=== PATIENT | male | born 1950 | race Caucasian/White ===

== ENCOUNTER 2016-11-03 11:19 | Observation (INO) | payer MEDICARE ==
--- NOTE | ~2016-11-03 | DS ---
PATIENT:HERMELINDA BRIAN :46 MEDICAL RECORD: [id number] DISCHARGE SUMMARY ADMISSION DATE: 11/03/16 DISCHARGE DATE: 11/04/16 PROBLEM LIST: 1. Non-ST elevation myocardial infarction. 2. Hypertension. 3. Hyperlipidemia. BRIEF HISTORY AND HOSPITAL COURSE: A 66-year-old gentleman admitted with a non-ST elevation myocardial infarction. Discussed angiography. Due to time and financial constraints, he was unable to do this at this point in time and perfers to followup at the [place]. He was started on Plavix and nitrates, previously on beta blockade. He was discharged home, pain free after the walking in the halls and eating. He is to return promptly if symptoms recur. Risk, benefit was again explained. TRANSINT:[id number] Voice Confirmation ID: [id number] DOCUMENT ID: [id number] DRAKE TABOR MD CC: [id number] DICTATION DATE: 11/04/16828 HOME THERAPY TEACHER: 11/05/16 0239 DIS IN 11/04/16 [id number] [place] [address]
[2016-11-03 12:10] LABS: BASOPHILS 0.3 % (0-2); EOSINOPHILS 0.7 % (0-7); HEMATOCRIT 37.6 % (42.0-54.0); HEMOGLOBIN 12.5 g/dL (13.5-17.5); IMMATURE GRANULOCYTES 0.2 % (0-5); LYMPHOCYTES 14.4 % (15-50); MCH 33.2 pg (26.0-34.0); MCHC 33.2 g/dL (31.0-37.0); MEAN PLATELET VOLUME 10.7 fL (7.4-10.4); MONOCYTES 10.1 % (2-11); NEUTROPHILS 74.3 % (40-80); PLATELET COUNT 187 10x3/uL (130-400); RBC 3.76 10x6/uL (4.20-6.10)
[2016-11-03 12:21] LABS: APTT 25.8 SECONDS (22.8-39.4); INR 1.09 (0.85-1.17)
[2016-11-03 12:33] LABS: ALBUMIN 3.3 g/dL (3.4-5.0); ALKALINE PHOSPHATASE 48 U/L (46-116); ALT (SGPT) 25 U/L (10-68); BILIRUBIN - TOTAL 0.67 mg/dL (0.2-1.3); CALC OSMOLALITY 271 mosm/kg (275-300); CALCIUM 8.8 mg/dL (8.5-10.1); CARBON DIOXIDE 31.4 mmol/L (21.0-32.0); CHLORIDE - SERUM 100 mmol/L (98-107); CREATININE - SERUM 1.3 mg/dL (0.6-1.3); GLUCOSE 159 mg/dL (74-106); POTASSIUM - SERUM 4.3 mmol/L (3.5-5.1); PROTEIN - SERUM 6.7 g/dL (6.4-8.2); SODIUM 134 mmol/L (136-145); UREA NITROGEN 14 mg/dL (7-18); eGFR NON AFRICAN AMERICAN 58 mL/min (90-120)
[2016-11-03 12:39] LABS: CHOL - HDL RATIO 2.7 ratio (2.3-4.9); CHOLESTEROL, TOTAL 204 mg/dL (0-200); CKMB 1.6 U/L (0.0-3.6); CREATINE KINASE 109 UL (21-232); HDL CHOLESTEROL 75 mg/dL (32-96); LDL CHOLESTEROL 104 mg/dL (0-100); LDL-HDL RATIO 1.4 ratio (1.5-3.5); TRIGLYCERIDE 125 mg/dL (30-200)
[2016-11-03 12:40] LABS: TROPONIN-I < 0.017 ng/mL (0.000-0.060)
[2016-11-03] MEDS ORDERED: ZESTRIL40 MG PO (17:10)
[2016-11-03] MEDS ORDERED: METOPROLOL TART50 MG PO (17:11)
--- NOTE | 2016-11-03 17:59 | NUR ---
PT RECIEVED FROM ER. DENIES ANY DISCOMFORT AT PRESENT TIME. IV TO LEFT AC. TELEMERTY SHOWS SR. V/S STABLE
[2016-11-03 19:19] LABS: CKMB 1.6 U/L (0.0-3.6); CREATINE KINASE 101 UL (21-232)
[2016-11-03 20:50] VITALS: BP 102/67
[2016-11-04 00:37] LABS: CKMB 1.8 U/L (0.0-3.6); CREATINE KINASE 81 UL (21-232)
[2016-11-04 00:40] LABS: TROPONIN-I 0.222 ng/mL (0.000-0.060)
[2016-11-04 04:00] VITALS: BP 117/73
--- NOTE | 2016-11-04 07:37 | NUR ---
ASSESSMENT DONE. DENIES NEEDS
[2016-11-04 07:44] LABS: CKMB 1.6 U/L (0.0-3.6); CREATINE KINASE 72 UL (21-232)
[2016-11-04 07:45] LABS: TROPONIN-I 0.238 ng/mL (0.000-0.060)
[2016-11-04 08:00] VITALS: BP 154/75
--- NOTE | 2016-11-04 08:38 | NUR ---
WALKING IN HALLWAY. NO DISTRESS NO CHEST PAIN. MONITOR SHOWS SR @ 60.
[2016-11-04] MEDS ORDERED: ISOSORBIDE MONO30 M1 PO (09:59)
[2016-11-04] MEDS ORDERED: PLAVIX75 MG PO (10:07)
--- NOTE | 2016-11-04 12:33 | NUR ---
DC HOME PER PERSONAL CAR
== END 2016-11-04 12:33 | disposition home or self-care (01) ==
LOC: D.ER 11:19 → OBSVTIME 14:28 → D.SDCHOLD 14:28 → D.M2 16:13
PROVIDERS: Family Medicine; ADMIT Internal Medicine Interventional Cardiology
DX: I10 Essential (primary) hypertension (principal); E78.5 Hyperlipidemia, unspecified